=== PATIENT | female | born 2000 | race Caucasian/White ===

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

== ENCOUNTER 2023-04-27 11:12 | Outpatient (CLI) | payer BC, MEDICAID, SELFPAY ==
--- NOTE | ~2023-04-27 | US_ITS ---
Thyroid ultrasound. Clinical History: Thyroid nodule Findings: Real-time sonography of the thyroid gland was performed. The right lobe measures 5.6 x 1.9 x 1.7 cm. The left lobe measures 5.6 x 1.6 x 1.6 cm. The isthmus is 2 mm in AP diameter. Several tin y, subcentimeter cystic thyroid nodules are noted, of no clinical significance. Impression: No significant abnormality identified.. Reviewed, dictated and finalized at location . Impression: No significant abnormality identified..
[2023-04-27 12:14] LABS: Basophils Absolute Auto 0.1 K/mm3 (0.0-0.1); Basophils Percent Auto 0.7 % (0.2-1.2); Eosinophils Absolute Auto 0.2 K/mm3 (0-0.3); Eosinophils Percent Auto 1.6 % (0-4.4); Hematocrit 34.1 % (37.0-47.0); Hemoglobin 11.2 g/dL (12.0-15.0); Immature Granulocyte Absolute 0.08 K/mm3 (0.00-0.031); Immature Granulocyte Percent A 0.6 % (0-0.5); Lymphocytes Absolute Auto 2.05 K/mm3 (0.9-3.2); Lymphocytes Percent Auto 15.3 % (18.3-44.2); Mean Corpuscular HGB Conc 32.8 g/dl (32-36); Mean Corpuscular Hemoglobin 29.5 pg (26-34); Mean Corpuscular Volume 89.7 fl (80-100); Mean Platelet Volume 9.3 fl (7.4-10.4); Monocytes Absolute Auto 0.7 K/mm3 (0.1-0.6); Monocytes Percent Auto 5.1 % (2.6-8.5); Neutrophils Absolute Auto 10.3 K/mm3 (1.3-6.7); Neutrophils Percent Auto 76.7 % (45.5-73.1); Platelet Count Result 290 k/mm3 (150-375); Red Cell Distribution Width 14.3 % (11.5-14.5); White Blood Count 13.4 K/mm3 (4.5-10.0)
[2023-04-27 12:27] LABS: Hemoglobin A1C 4.6 % (<5.7)
[2023-04-27 12:51] LABS: Free T4 Free Thyroxine 0.79 ng/mL (0.78-2.19); Vitamin D 25 Hydroxy 22.4 ng/mL
[2023-04-27 12:55] LABS: Thyroid Stimulating Hormone 0.564 uIU/mL (0.465-4.680)
[2023-04-27 13:05] LABS: HIV 1/2 Ab P24 Ag Result Negative (Negative)
[2023-04-27 13:10] LABS: Ferritin 7.74 ng/mL (6.24-137); Hepatitis B Surface Antigen Negative (Negative); Rubella IgG Antibody 14.7 IU/ML
[2023-04-27 13:23] LABS: Hepatitis C Virus Antibody Negative (Negative)
[2023-04-28 13:18] LABS: Rapid Plasma Reagin Non-Reactive (NonReactive)
== END 2023-04-27 11:13 | disposition home or self-care (01) ==
PROVIDERS: PCP Nurse Practitioner Family; Visit Provider Advanced Practice Midwife
DX: Z36.9 Encounter for antenatal screening, unspecified (principal); E04.1 Nontoxic single thyroid nodule
CPT/HCPCS: 36415; 76536; 82306; 82728; 83036; 84439; 84443; 85025; 86592; 86703; 86762; 86803; 86850; 86900; 86901; 87340; G0432

== ENCOUNTER → 2023-07-12 13:35 | Outpatient (CLI) | payer BC, MEDICAID, SELFPAY ==
--- NOTE | ~2023-07-12 | US_ITS ---
EXAMINATION: US OB follow up DATE: 07/12/2023 14:03 INDICATION: Estimated size less than expected for estimated gestational age TECHNIQUE: Real-time ultrasound of the pelvis was performed. The interpreting radiologist was not pre sent for the study. COMPARISON: None. FINDINGS: There is a single living fetus in vertex presentation. The placenta is posterior and not low-lying. Cervical length is at least 4.5 cm. heart rate is 136 beats per minute (bpm). The amniotic flui d index is 14.7 cm, which is normal (5th%-95%: 8.3-24.5 cm at 33 weeks estimated gestational age) . The following biometric data were obtained: BPD: 8.4 cm -> 33 weeks 6 days Head circumference: 30.2 cm -> 33 weeks 4 days Abdominal circumference: 30.1 cm -> 34 weeks 0 days Femur length: 6.5 cm -> 33 weeks 4 days These measurements are concordant. Head circumference to abdominal circumference ratio: 1.01 (normal range 0.95-1.11). Estimated weight: 2283 g (+/-) 342 g or 5 lbs. 1 oz. (+/-) 12 oz. IMPRESSION: 1. Single living fetus in vertex presentation with heart rate of 136 bpm. 2. Gestational age by ultrasound of 33 weeks 5 day(s) +/- 2 week(s) 3 day(s) with ultrasound estimate d date of delivery (HAIM) of 08/25/2023. Estimated weight is 54th percentile by Hadlock criteria when 08/27/2023 is used as the HAIM. Please correlate with clinical information or earlier ultrasounds for most accurate HAIM. 3. Normal amniotic fluid index of 14.7 cm. Reviewed, dictated and finalized at location A. IMPRESSION: 1. Single living fetus in vertex presentation with heart rate of 136 bpm. 2. Gestational age by ultrasound of 33 weeks 5 day(s) +/- 2 week(s) 3 day(s) wi th ultrasound estimated date of delivery (HAIM) of 08/25/2023. Estimated we ight is 54th percentile by Hadlock criteria when 08/27/2023 is used as the HAIM. Please correlate with clinical information or earlier ultrasounds for most accu rate HAIM. 3. Normal amniotic fluid index of 14.7 cm.
== END ==
PROVIDERS: PCP Advanced Practice Midwife; Visit Provider Advanced Practice Midwife
DX: O36.5930 Maternal care for other known or suspected poor fetal growth, third trimester, not applicable or unspecified (principal); Z3A.33 33 weeks gestation of pregnancy
CPT/HCPCS: 76816

== ENCOUNTER 2023-08-20 14:08 | Inpatient (IN) | payer BC, MEDICAID, SELFPAY ==
[2023-08-20] VITALS (85 sets, daily range): BP systolic 98–144; BP diastolic 40–87; PULSE 54–126; TEMP 36.6–37; O2SAT 96–100; BMI 27.3
--- NOTE | 2023-08-20 15:03 | LDADM ---
This patient, Mary Arias, was admitted to Labor/Delivery/Recovery 104 on 08/20/23 at 14:08. Plans for labor, pain management and were discussed with patient. Patient/family oriented to hospital policies and general routines including ID bracelet, bed and alarms, visiting hours, pain management, procedures, bathroom and other care routines, personal items, smoking policy, room service/diet and guest tray routines, infant security routines, and visiting hours. Patient/Family are encouraged to report perceived risks to care and to ask questions if they do not understand what they are told or what they should do. See OBIX for further documentation.
[2023-08-20 15:43] LABS: Basophils Absolute Auto 0.1 K/mm3 (0.0-0.1); Basophils Percent Auto 0.5 % (0.2-1.2); Eosinophils Absolute Auto 0.1 K/mm3 (0-0.3); Eosinophils Percent Auto 0.9 % (0-4.4); Hematocrit 32.9 % (37.0-47.0); Hemoglobin 10.4 g/dL (12.0-15.0); Immature Granulocyte Absolute 0.09 K/mm3 (0.00-0.031); Immature Granulocyte Percent A 0.7 % (0-0.5); Lymphocytes Absolute Auto 2.01 K/mm3 (0.9-3.2); Lymphocytes Percent Auto 15.1 % (18.3-44.2); Mean Corpuscular HGB Conc 31.6 g/dl (32-36); Mean Corpuscular Hemoglobin 27.1 pg (26-34); Mean Corpuscular Volume 85.7 fl (80-100); Mean Platelet Volume 10.8 fl (7.4-10.4); Monocytes Absolute Auto 0.7 K/mm3 (0.1-0.6); Monocytes Percent Auto 5.1 % (2.6-8.5); Neutrophils Absolute Auto 10.4 K/mm3 (1.3-6.7); Neutrophils Percent Auto 77.7 % (45.5-73.1); Platelet Count Result 266 k/mm3 (150-375); Red Blood Count 3.84 M/mm3 (4.2-5.4); White Blood Count 13.4 K/mm3 (4.5-10.0)
--- NOTE | 2023-08-20 15:55 | P.PNAN_ITS ---
Anes - Eval Pre Procedure Procedure: labor epidural Date/Time: 08/20/23 15:55 Surgeon: Blanca Preop Diagnosis: pain during labor Pre Op Diagnosis: Leaking Patient Data Age: 23 Gender: F Height: 1.6 m Weight: 70 kg Last Vital Signs O2 Del Method Room Air 08/20/23 15:06 Allergies Allergy/AdvReac Type Severity Reaction Status Date / Time No Known Allergies Allergy Verified 08/02/23 13:38 Home Medications Medication Instructions Recorded Confirmed Type Complete 1 tab-cap PO DAILY 08/02/23 08/02/23 History levothyroxine 25 mcg tablet 25 mcg PO DAILY 08/02/23 08/02/23 History Laboratory Tests 08/20/23 15:09 WBC 13.4 H K/mm3 (4.5-10.0) RBC 3.84 L M/mm3 (4.2-5.4) Hgb 10.4 L g/dL (12.0-15.0) Hct 32.9 L % (37.0-47.0) MCV 85.7 fl (80-100) MCH 27.1 pg (26-34) MCHC 31.6 L g/dl (32-36) RDW 13.0 % (11.5-14.5) Plt Count 266 k/mm3 (150-375) MPV 10.8 H fl (7.4-10.4) Immature Gran % (Auto) 0.7 H % (0-0.5) Neut % (Auto) 77.7 H % (45.5-73.1) Lymph % (Auto) 15.1 L % (18.3-44.2) [place] % (Auto) 5.1 % (2.6-8.5) Eos % (Auto) 0.9 % (0-4.4) Baso % (Auto) 0.5 % (0.2-1.2) Lymph # (Auto) 2.01 K/mm3 (0.9-3.2) [place] # (Auto) 0.7 H K/mm3 (0.1-0.6) Eos # (Auto) 0.1 K/mm3 (0-0.3) Baso # (Auto) 0.1 K/mm3 (0.0-0.1) Abs Immat Gran (auto) 0.09 H K/mm3 (0.00-0.031) Absolute Neuts (auto) 10.4 H K/mm3 (1.3-6.7) Absolute Nucleated RBC 0.0 K/mm3 (0.0-0.012) Nucleated RBC % 0.0 % (0.0-0.2) RPR Pending Patient hx anesthesia problems: none Family hx anesthesia problems: none Results Review: All pre-operative results and documents have been reviewed as part of the pre- operative evaluation. [facility] Family History Family History Other Unknown family medical history Social History Social History Smoking status: Never smoker Substance use: never Lack of Transportation: No Lack of Food: Never True Current Housing: I Have Housing Concerned About Future Housing: No Difficulty Paying Gas/Electric Bills: No Difficulty Paying for Meds: No Currently Unemployed: No Education: High School Diploma/GED Difficulty w/ Childcare or Family Care: No Spiritual care concerns: No Exam Day of Procedure 08/20/23 15:55 Patient weight: normal Heart: regular rate and rhythm Lungs: normal air movement Airway: Mallampati scale class II Neurological: alert and oriented
[2023-08-20] MEDS: LACTATED RINGERS 1,000 ML 125 ML IV CONT (19:04)
[2023-08-20] MEDS: LACTATED RINGERS 500 ML 999 ML IV CONT (19:09)
[2023-08-20] MEDS: PHENYLEPHRINE 1,000 MCG/10 ML SYRINGE 100 MCG IV PUSH (20:07)
[2023-08-20] MEDS: OXYTOCIN 30 UNITS/NS 500 ML 30 UNITS/500 ML BAG IV CONT (22:04)
[2023-08-21] VITALS (35 sets, daily range): BP systolic 102–140; BP diastolic 55–92; PULSE 77–107; RESP 16–18; TEMP 36.5–37.3; O2SAT 96–100
--- NOTE | 2023-08-21 00:11 | WPDHPUPDATE1 ---
History and Physical Update Update Date/Time: 08/21/23 00:11 History and Physical has been reviewed, including an updated exam of the patient. There are NO changes in the patient's condition. Risks, benefits, and alternatives have been discussed and questions answered. Patient agrees to proceed with procedure. Chart reviewed. She is a 23 y/o G1 at 39 weeks admitted for SROM, at 1000 on 08/20/23. Irregular contractions. Admit expectant management. Pitocin augmentation if not progressing.
--- NOTE | 2023-08-21 00:14 | PM.OBPRVD ---
OB - Delivery Note Procedure Delivery date: 08/20/23 Procedure: Spontaneous vaginal delivery Induction method: None Delivery augmentation: Pitocin Delivery monitor: External FHT Route of delivery: Episiotomy description: None Laceration Description: Perineal - 2nd Degree and Other (superior labia minora) Delivery repair: vicryl (3.0 vicryl) Specimen: Yes Quantitative Blood Loss (ml): 250 Anesthesia type: Epidural Disposition: Floor Complications: None Narrative: She was admitted after confirmation of SROM. She was expectantly managed and she had intermittent monitoring. Pitocin was progressing slowly and pitocin initiated to augment labor. She was complete within approximately an hour. She delivered a female infant, terminal meconium noted, nose and mouth suctioned with bulb at perineum. Shoulders and the rest of infant delivered. Infant was vigorously crying and placed on maternal abdomen. Cord palpated and was apulsatile at one minute after and cord doubly clamped and cut. Placenta delivered spontaneously and intact. She sustained a small laceration at superior labial minora which was bleeding. Hemostasis obtained with figure of eight 3.0 vicryl. Second degree perineal laceration repaired with 3.0 vicryl. Patient tolerated procedure well. [place] Baby Date of : 08/20/23 Time of : 23:21 Weeks of gestation at delivery: 39 gender: Female Weight (pounds): 8 Weight (ounces): 3 presentation: vertex position: Left Occiput Anterior Placenta delivery description: Spontaneous Cord Vessel Description: 3 Vessels, Clamped/Cut and Delayed Cord Clamping score one minute: 8 score five minutes: 9
[2023-08-21] MEDS: BENZOCAINE 20% AER SPR (*SP) 56 GM CAN 1 SPRAY TOPICAL (01:47)
[2023-08-21] MEDS: IBUPROFEN 600 MG TABLET PO ×2 (01:47→19:35)
[2023-08-21] MEDS: WITCH HAZEL 40 PADS 1 PAD TOPICAL (01:47)
[2023-08-21] MEDS: MULTIVIT/MIN/PREN/FOL AC/IRON TABLET 1 TAB PO (08:12)
--- NOTE | 2023-08-21 09:18 | PC.NURSE ---
[id number] Introductions were made, then consulted with patient to assess needs related to . Mother is resting and infant is in the nursery. Mother states she thinks is going well, there's no pain with and only some tenderness. Resources provided for inpatient and outpatient services with the mom/baby guide and name written on the communication board. Mother voiced understanding of information and will call if there is a request for assistance. [phone] Consult initiated after mother called for assistance. Mother works well with her infant, however, infant is swaddled and mother states infant keeps falling asleep. Mother has a linear purple dena on her right areola and some purple discoloration on her nipples with skin intact. Mother demonstrated positioning her infant with belly to the ceiling using the cradle hold. RN encouraged resetting and waking with skin to skin (demonstrating unwrapping and placing upright on her chest), stimulating with massage touch, changing positions, watching feeding cues (which infant quickly demonstrates, responsive feeding, feeding on demand (aiming for 8-12 times in 24 hours, about every 2-3 hours), milk production, building/maintaining a milk supply, duration of feeding, signs of adequate intake/output and how to record on the feeding sheet. Reviewed positioning and ear, shoulder, hip alignment, supporting the breast to facilitate a deep latch, asymmetrical latch (off-center), leading with the chin with a big, open, wide gape and body close to mother. Infant latched optimally to the right breast in cross cradle position. Education given to mother of how to visualize suck/swallow ratios and listen for drinking at the breast (which infant demonstrated). was able to maintain latch without discomfort to mother. After repositioned on the nipple and stopped effectively infant was placed upright [id number] between mothers breast. was relatched to the right breast for continuing effective . Reviewed with mother the skill of keeping actively . After 10 minutes infant was detached, placed upright S2S, then offered the left breast with cross cradle positioning support of the breast using the U-hold for a deeper latch. Infant demonstrates effectively . Nipple care reviewed with optimal latch and good positioning. Mother voiced understanding of skin to skin, stimulating with massage touch, responsive feedings on demand or stimulate to breastfeed if it has been 2 -2.5 hours since the start of the last , to call if infant does not latch, or if there is discomfort with . Resources provided for inpatient/outpatient with the mom/baby guide. Mother voiced understanding of information, demonstrated learning and will call if there is a request for assistance. Reported to the Primary RN.
--- NOTE | 2023-08-21 10:51 | P.PNOB_ITS ---
OB - PN: Subj Subjective Date/time seen: 08/21/23 10:51 Patient comments: no complaints and pain well controlled baby status: doing well OB - PN: Obj Data Labs 08/20/23 15:09 Labs: Laboratory Results - last 24 hr 08/20/23 15:09 WBC 13.4 H RBC 3.84 L Hgb 10.4 L Hct 32.9 L MCV 85.7 MCH 27.1 MCHC 31.6 L RDW 13.0 Plt Count 266 MPV 10.8 H Immature Gran % (Auto) 0.7 H Neut % (Auto) 77.7 H Lymph % (Auto) 15.1 L [place] % (Auto) 5.1 Eos % (Auto) 0.9 Baso % (Auto) 0.5 Lymph # (Auto) 2.01 [place] # (Auto) 0.7 H Eos # (Auto) 0.1 Baso # (Auto) 0.1 Abs Immat Gran (auto) 0.09 H Absolute Neuts (auto) 10.4 H Absolute Nucleated RBC 0.0 Nucleated RBC % 0.0 Blood Type AB Positive Antibody Screen Negative OB - PN A/P Plan day: 1 Plan: routine care Time Spent With Patient Time: Total time spent is greater than 50% in coordination of care (as documented) at patient's floor/unit and/or counseling patient: Exam : Bimanual exam- vagina & uterus: other (Uterus firm, nt @U)
[2023-08-21 13:36] LABS: Rapid Plasma Reagin Non-Reactive (NonReactive)
[2023-08-22 05:19] LABS: Hematocrit 30.5 % (37.0-47.0); Hemoglobin 9.7 g/dL (12.0-15.0)
--- NOTE | 2023-08-22 07:55 | PM.OBDSVD ---
DS: Admitting Diagnosis Discharge Date 08/22/23 Admitting Diagnosis SROM at 39 wks DS: Discharge Diagnosis Discharge Diagnosis (1) (normal spontaneous vaginal delivery): Code(s): O80 - Encounter for full-term uncomplicated delivery Status: Acute OB - DS: Summary OB Procedures : Ultrasound OB Procedures Intrapartum: Spontaneous Vag Delivery OB Procedures: : None Peripartum Data Infant Delivery Method: Natural Vaginal Laceration Description: Perineal - 2nd Degree and Labial complications: none Status at Discharge Functional status at discharge: independent ambulation Overall status at discharge: patient is progressing back to baseline Time Spent with Patient Time attestation: Total time spent providing and/or coordinating discharge services: DS: Data Data Completed and Pending Labs on day of discharge: Labs from last 24 hours 08/22/23 08/20/23 04:18 15:09 Hgb 9.7 L Hct 30.5 L RPR Non-reactive Discharge Plan Discharge Attending physician on discharge: Rossy Rios Discharging Clinician: Rossy Rios Anticipated Discharge Date/Time: 08/22/23 07:56 Patient Disposition: Home, Self-Care Activity: may shower and pelvic rest Diet: regular Patient Instructions: Antibiotic Form Stand Alone Forms: General Discharge Information Follow-up/Referrals: Ariela Allred CNM [Primary Care Provider] - 6 Weeks Discharge Medications: Continued Complete 1 tab-cap PO DAILY levothyroxine 25 mcg Tablet 25 mcg PO DAILY Date of admission: 08/20/23 14:08 Primary Care Provider: Ariela Allred Admitting Provider: Rossy Rios Attending physician on admission: Rossy Rios Condition: Stable
--- NOTE | 2023-08-22 07:57 | PM.OBPNVD ---
OB - PN: Subj Subjective Date/time seen: 08/22/23 07:57 Patient comments: no complaints and pain well controlled baby status: doing well and nursing well OB - PN: Obj Data Labs 08/22/23 04:18 Labs: Laboratory Results - last 24 hr 08/20/23 08/22/23 15:09 04:18 Hgb 9.7 L Hct 30.5 L RPR Non-reactive OB - PN A/P Plan day: 2 Plan: routine care, discharge home, follow up 6 weeks and other (reviewed control) Time Spent With Patient Time: Total time spent is greater than 50% in coordination of care (as documented) at patient's floor/unit and/or counseling patient: Exam : Bimanual exam- vagina & uterus: other (Uterus firm, nt @U)
[2023-08-22 08:20] VITALS: BP 126/77; PULSE 85; RESP 16; TEMP 37.6; O2SAT 99
[2023-08-22] MEDS: MULTIVIT/MIN/PREN/FOL AC/IRON TABLET 1 TAB PO (08:21)
--- NOTE | 2023-08-22 11:00 | PC.NURSE ---
Addendum entered by Berenice Gonzalez RN 08/22/23 11:01: We reviewed signs of infant getting enough milk swallowing, eating every 1-3 hours with deep latch watching for appropriate pees and transitioning of stool. Mother understands what swallowing looks like. Discussion about hypothyroidism and milk production was reviewed. Encouraged mother to call ICP or if is eating every hour all day, there's pain with latching or is not waking to eat for 2 feedings. See below concerning reference to resources of when to call the doctor. Original Note: 0945 - Mother led the conversation with her experience and is demonstrating her ability to independently latch infant optimally without discomfort. Reminded parents to use good handwashing technique to prevent infection. Mother is feeding appropriately for growth of and understands stimulating infant to eat if needed. Infant has had appropriate feedings in the last 24 hours meets the outcomes for weight, output and jaundice at this time. Mother states she is confident to continue effectively her at home, when to call for assistance and denies any additional assistance or education at this time. Reinforced understanding of milk production, transition of milk, signs of adequate intake, transition of stool, prevention/relief of engorgement, plugged ducts, mastitis, responsive watching for feeding cues, the different methods of stimulating to breastfeed 2-3 hours after the start of the last feeding, community resources and when to call a provider using the resource of the mom/baby guide and feeding sheet. Mother voiced understanding of the education shared. Reported to the primary RN.
== END 2023-08-22 11:30 | disposition home or self-care (01) | DRG 807 ==
LOC: ANHLDR 14:51 → ANHOB2 08-21 02:09
PROVIDERS: Obstetrics & Gynecology; Admitting Provider Obstetrics & Gynecology Gynecology; PCP Advanced Practice Midwife; Visit Provider Obstetrics & Gynecology Gynecology
DX: O62.3 Precipitate labor (principal); Z37.0 Single live birth; Z3A.39 39 weeks gestation of pregnancy; O70.1 Second degree perineal laceration during delivery
CPT/HCPCS: 36415; 85014; 85018; 85025; 86592; 86850; 86900; 86901; A9270; J2371; J2590; J2795; J7120